=== PATIENT | male | born 1990 ===

== ENCOUNTER 2022-01-11 08:23 | Emergency (ER) | payer SELFPAY ==
[2022-01-11] MEDS ORDERED: ZIPRASIDONE MESYLATE 20 MG VIAL IM ONE (09:48)
[2022-01-11 10:03] LABS: Amorphous Crystals,Urine Few; Mucus,Urine FEW /HPF
[2022-01-11 10:03] LABS: BUN/Creatinine Ratio 22; Blood Urea Nitrogen 26 mg/dL (9-20); Calcium 9.6 mg/dL (8.4-10.2); Hemolysis Index 77
[2022-01-11 10:15] LABS: Color,Urine Yellow (Yellow)
[2022-01-11 10:21] LABS: Ictotest,Urine Negative (Negative)
--- NOTE | 2022-01-11 10:27 | Consultation ---
History of Present Illness - Reason for Consult Consult date: 01/11/22 Reason for consult: Mental health evaluation - History of Present Psychiatric Illness Patient is a 31 year-old male brought in by ambulance to ED. This service was consulted for mental health evaluation. Patient was seen today. Patient alert, oriented to self, and would not respond to questions. Patient whispered and talked to self throughout interview. Patient admits to visual and auditory hallu cinations. Patient reports previously taking psychiatric medication, but unsure which medications. PAST PSYCHIATRIC HISTORY: Diagnoses: unable to assess Suicide attempts or Self-harm behavior: unable to assess Prior psychiatric hospitalizations: unable to assess Substance Abuse history: unable to assess Previous psychiatric medications tried: unable to assess Outpatient treatment: unable to assess PAST MEDICAL HISTORY: unable to assess Family Psychiatric History: unable to assess SOCIAL HISTORY Marital Status: unable to assess Living Arrangements: Homeless Employment Status: unable to assess Access to guns/weapons: unable to assess Education: unable to assess History of Abuse: unable to assess Legal History: unable to assess REVIEW OF SYSTEMS unable to assess MENTAL STATUS EXAMINATION General Appearance and Behavior: Age appropriate, wearing appropriate clothes, cooperative, polite with questioning, good eye contact Cooperation: cooperative Psychomotor Behavior: Psychomotor normal Mood: depressed Affect and affective range: congruent with stated affect, crying Thought Process: illogical Thought Content: delusional Speech: Normal volume, Regular rate and rhythm Suicidal Ideation: Yes Homicidal Ideation: Denies Hallucination: Denies Delusions: Yes Impulse Control: Limited Insight and Judgment: Poor Memory: Intact Attention: Distracted Orientation: Alert and oriented Diagnoses: Schizophrenia Treatment Plan - 1013 - Olanzapine 5 mg BID - Trazodone 50 mg qhs - Haldol 5 mg IM q6h PRN Risks, benefits and alternatives of medications discussed with the patient, questions answered and consent obtained from patient. PSYCHOTHERAPY: Supportive psychotherapy provided MEDICAL: Per primary team DELIRIUM PRECAUTIONS: Please re-orient patient frequently, keep lights on during the day, and minimize benzodiazepines and opiates as these medications could worsen patient's confusion. INTERNAL GRINDER TENDER: Defer to primary DISPOSITION: recommend acute inpatient psychiatric hospitalization. FOLLOW-UP: Will follow Medications and Allergies Allergies Allergy/AdvReac Type Severity Reaction Status Date / Time No Known Allergies Allergy Unverified 01/11/22 09:32 Mental Status Exam - Vital signs Last Vital Signs Temp 98.4 F 01/11/22 08:42 Pulse 130 H 01/11/22 08:42 Resp BP 160/90 01/11/22 08:42 Pulse Ox 97 01/11/22 10:18 Results Result Diagrams: 01/11/22 09:24 Abnormal lab results 01/11/22 Range/Units 09:24 Carbon Dioxide 21 L (22-30) mmol/L BUN 26 H (9-20) mg/dL Glucose 112 H (75-100) mg/dL All other labs normal.
[2022-01-11] MEDS ORDERED: HALOPERIDOL LACTATE 5 MG/1 ML INJ IM PRN (11:00)
[2022-01-11 11:19] LABS: Amphetamine Screen,Urine Negative; Benzodiazepines Screen,Urine Negative; Cannabinoid Screen,Urine Negative; Cocaine Screen,Urine Negative; Methadone Screen,Urine Negative; Opiate Screen,Urine Negative
--- NOTE | 2022-01-11 12:19 | Emergency Department Report ---
ED General Adult HPI - General Chief complaint: Psych Stated complaint: PSYCH Time Seen by Provider: 01/11/22 11:19 Source: EMS Mode of arrival: Ambulatory Limitations: No Limitations - History of Present Illness Initial comments: The patient presents to the emergency department for auditory and visual hallucinations. Patient denies suicidal homicidal ideations. Patient is very reserved during the history and physical. -: unknown Improves with: none Worsens with: none Associated Symptoms: denies other symptoms Treatments Prior to Arrival: none - Related Data Allergies Allergy/AdvReac Type Severity Reaction Status Date / Time No Known Allergies Allergy Unverified 01/11/22 09:32 ED Review of Systems ROS: Stated complaint: PSYCH Other details as noted in HPI Comment: All other systems reviewed and negative Constitutional: denies: chills, fever Eyes: denies: eye pain, eye discharge, vision change ENT: denies: ear pain, throat pain Respiratory: denies: cough, shortness of breath, wheezing Cardiovascular: denies: chest pain, palpitations Endocrine: no symptoms reported Gastrointestinal: denies: abdominal pain, nausea, diarrhea Genitourinary: denies: urgency, dysuria Musculoskeletal: denies: back pain, joint swelling, arthralgia Skin: denies: rash, lesions Neurological: denies: headache, weakness, paresthesias Psychiatric: auditory hallucinations, visual hallucinations. denies: anxiety, depression, homicidal thoughts, suicidal thoughts Hematological/Lymphatic: denies: easy bleeding, easy bruising ED Physical Exam - General Limitations: No Limitations General appearance: alert, in no apparent distress - Head Head exam: Present: atraumatic, normocephalic - Eye Eye exam: Present: normal appearance, PERRL, EOMI - ENT ENT exam: Present: mucous membranes moist - Neck Neck exam: Present: normal inspection - Respiratory Respiratory exam: Present: normal lung sounds bilaterally. Absent: respiratory distress - Cardiovascular Cardiovascular Exam: Present: regular rate, normal rhythm. Absent: systolic murmur, diastolic murmur, rubs, gallop - GI/Abdominal GI/Abdominal exam: Present: soft, normal bowel sounds - Rectal Rectal exam: Present: deferred - Extremities Exam Extremities exam: Present: normal inspection - Back Exam Back exam: Present: normal inspection - Neurological Exam Neurological exam: Present: alert, oriented X3, CN II-XII intact. Absent: motor sensory deficit - Psychiatric Psychiatric exam: Absent: homicidal ideation, suicidal ideation - Skin Skin exam: Present: warm, dry, intact, normal color. Absent: rash ED Course Vital Signs 01/11/22 01/11/22 08:42 10:18 Temperature 98.4 F Pulse Rate 130 H Blood Pressure 160/90 [Left] O2 Sat by Pulse 98 97 Oximetry ED Medical Decision Making - Lab Data Result diagrams: 01/11/22 09:24 Lab Results 01/11/22 01/11/22 01/11/22 Range/Units 09:24 09:48 09:48 Sodium 138 (137-145) mmol/L Potassium 4.3 (3.6-5.0) mmol/L Chloride 101.5 (98-107) mmol/L Carbon Dioxide 21 L (22-30) mmol/L Anion Gap 20 mmol/L BUN 26 H (9-20) mg/dL Creatinine 1.2 (0.8-1.3) mg/dL Estimated GFR > 60 ml/min BUN/Creatinine Ratio 22 % Glucose 112 H (75-100) mg/dL Calcium 9.6 (8.4-10.2) mg/dL Urine Color Yellow (Yellow) Urine Turbidity Clear (Clear) Specific [place] (Man) 1.025 (1.003-1.030) Ur Protein (Man) 2+ (Negative) mg/dL Ur Ketones (Man) 1+ (Negative) Ur Nitrite (Man) Negative (Negative) Ur Reducing Substances Not Reportable Urine Bilirubin (Man) Small (Negative) Urine Ictotest Negative (Negative) Leukocyte Esterase (Man) Negative (Negative) Urine WBC (Auto) 1.0 (0.0-6.0) /HPF Urine RBC (Auto) 1.0 (0.0-6.0) /HPF Urine RBC (Manual) 2+ (Negative) Amorphous Crystals Few Urine Mucus Few /HPF Urine Opiates Screen Negative Urine Methadone Screen Negative Ur Barbiturates Screen Negative Ur Phencyclidine Scrn Negative Ur Amphetamines Screen Negative U Benzodiazepines Scrn Negative Urine Cocaine Screen Negative U Marijuana (THC) Screen Negative Drugs of Abuse Note Disclamer SARS-CoV-2 (PCR) (Negative) 01/11/22 Range/Units 09:58 Sodium (137-145) mmol/L Potassium (3.6-5.0) mmol/L Chloride (98-107) mmol/L Carbon Dioxide (22-30) mmol/L Anion Gap mmol/L BUN (9-20) mg/dL Creatinine (0.8-1.3) mg/dL Estimated GFR ml/min BUN/Creatinine Ratio % Glucose (75-100) mg/dL Calcium (8.4-10.2) mg/dL Urine Color (Yellow) Urine Turbidity (Clear) Specific [place] (Man) (1.003-1.030) Ur Protein (Man) (Negative) mg/dL Ur Ketones (Man) (Negative) Ur Nitrite (Man) (Negative) Ur Reducing Substances Urine Bilirubin (Man) (Negative) Urine Ictotest (Negative) Leukocyte Esterase (Man) (Negative) Urine WBC (Auto) (0.0-6.0) /HPF Urine RBC (Auto) (0.0-6.0) /HPF Urine RBC (Manual) (Negative) Amorphous Crystals Urine Mucus /HPF Urine Opiates Screen Urine Methadone Screen Ur Barbiturates Screen Ur Phencyclidine Scrn Ur Amphetamines Screen U Benzodiazepines Scrn Urine Cocaine Screen U Marijuana (THC) Screen Drugs of Abuse Note SARS-CoV-2 (PCR) Negative (Negative) - Medical Decision Making 1013 applied ED hold applied Mental health evaluation ordered Waiting for laboratory values results for medical clearance Mental health has suggested inpatient services Critical care attestation.: If time is entered above; I have spent that time in minutes in the direct care of this critically ill patient, excluding procedure time. ED Disposition Clinical Impression: Hallucinations Disposition: [facility] Is pt being admited?: No Does the pt Need Aspirin: No Condition: Stable Referrals: SAROJ TRAN MD [Primary Care Provider] - 3-5 Days
[2022-01-11 19:47] LABS: Basophils # (Auto) 0.1 K/mm3 (0.0-0.1); Basophils % (Auto) 0.9 % (0.0-1.8); Eosinophils # (Auto) 0.2 K/mm3 (0.0-0.4); Eosinophils % (Auto) 2.3 % (0.0-4.3); Hematocrit 45.3 % (35.5-45.6); Hemoglobin 14.8 gm/dl (11.8-15.2); Lymphocytes # (Auto) 2.6 K/mm3 (1.2-5.4); Lymphocytes % (Auto) 33.6 % (13.4-35.0); Mean Corpuscular HGB Conc 33 % (32-34); Mean Corpuscular Volume 90 fl (84-94); Monocytes % (Auto) 12.6 % (0.0-7.3); Platelet Count 288 K/mm3 (140-440); Red Blood Count 5.02 M/mm3 (3.65-5.03); Red Cell Distribution Width 13.4 % (13.2-15.2)
--- NOTE | 2022-01-12 09:30 | Emergency Department Report ---
Blank Doc - Documentation Documentation: 31yo M p/w auditory/visual hallucinations. 1013 placed. Pt medically cleared by Dr. Nichols. No overnight events. VSS. Pt continues to await formal psychiatric definitive management/disposition.
--- NOTE | 2022-01-12 14:25 | Progress Note ---
Subjective - Reason for Consult Consult date: 01/12/22 Reason for consult: mental health evaluation - Chief Complaint Chief complaint: 01/12: Patient was seen today. Patient alert, oriented x3 and cooperative throughout interview. Patient reports history of psychosis. Patient reports previously taking risperidone with good result. Patient reports he was brought in because "I was trying to kill myself." Patient reports previous suicide attempt by drinking coolant 4 years ago. Patient reports being homeless for the last 22 months. Patient reports feeling sad and lonely for last 20 months. During questioning patient suddenly appeared agitated and started whispering to self. 01/11: Patient is a 31 year-old male brought in by ambulance to ED. This service was consulted for mental health evaluation. Patient was seen today. Patient alert, oriented to self, and would not respond to questions. Patient whispered and talked to self throughout interview. Patient admits to visual and auditory hallucinations. Patient reports previously taking psychiatric medication, but unsure which medications. PAST PSYCHIATRIC HISTORY: Diagnoses: schizophrenia Suicide attempts or Self-harm behavior: Yes Prior psychiatric hospitalizations: Yes Substance Abuse history: patient denies Previous psychiatric medications tried: risperidone Outpatient treatment: Yes SOCIAL HISTORY Marital Status: Living Arrangements: Homeless Employment Status: employed Access to guns/weapons: denies Education: 11th grade History of Abuse: unable to assess Legal History: denies MENTAL STATUS EXAMINATION General Appearance and Behavior: Age appropriate, wearing appropriate clothes, poor eye contact Cooperation: Non-cooperative Psychomotor Behavior: Within normal limits Mood: depressed Affect and affective range: depressed, irritable, labile Thought Process: disorganized, responding to internal stimuli Thought Content: reality based Speech: Normal volume, regular rate and rhythm during interview Suicidal Ideation: yes Homicidal Ideation: denies Hallucination: denies; whispering to self, responding to internal stimuli Delusions: None elicited Impulse Control: Limited Insight and Judgment: Poor Memory: Fair Attention: Distracted Orientation: Alert and oriented x3 Diagnoses: Schizophrenia Treatment Plan - 1013 - Olanzapine 5 mg BID - Trazodone 50 mg qhs - Haldol 5 mg IM q6h PRN for severe agitation Risks, benefits and alternatives of medications discussed with the patient, questions answered and consent obtained from patient. PSYCHOTHERAPY: Supportive psychotherapy provided MEDICAL: Per primary team DELIRIUM PRECAUTIONS: Please re-orient patient frequently, keep lights on during the day, and minimize benzodiazepines and opiates as these medications could worsen patient's confusion. HEALTH CONSULTANT: Defer to primary DISPOSITION: Recommend acute inpatient psychiatric hospitalization. FOLLOW-UP: Will follow Case staffed with Dr. Brielle Khalil Mental Status Exam - Vital signs Last Vital Signs Temp 98.8 F 01/12/22 09:06 Pulse 97 H 01/12/22 09:06 Resp 18 01/12/22 09:06 BP 116/78 01/12/22 09:06 Pulse Ox 97 01/12/22 09:07
[2022-01-12] MEDS: traZODone 50 MG TAB PO SCH (23:00)
[2022-01-13] MEDS: traZODone 50 MG TAB PO SCH
--- NOTE | 2022-01-13 08:20 | Emergency Department Report ---
Blank Doc - Documentation Documentation: 31yo M p/w auditory/visual hallucinations. VSS. No overnight events per nursing report. Pt is calm, cooperative, and well appearing on exam. Pt has been held on 1013 psychiatry hold. The pt continues to wait final disposition by psychiatry.
[2022-01-13 10:10] VITALS: BP 121/81
== END 2022-01-13 12:15 ==
LOC: ED 08:23
DX: R44.0 Auditory hallucinations (principal); R44.1 Visual hallucinations; Z20.822 Contact with and (suspected) exposure to COVID-19; Z79.899 Other long term (current) drug therapy
CPT/HCPCS: 36415; 80048; 80307; 81001; 85025; 96372; 99285; J1630; J3486; U0003; 80320; G0480